=== PATIENT | female | born 1990 | race Caucasian/White ===

== ENCOUNTER 2016-07-18 21:05 | Emergency (ER) | payer OTHER ==
--- NOTE | 2016-07-18 21:14 | PDOC ---
Rapid Medical Evaluation Chief Complaint: Vaginal Sxs Time Seen by Provider: 07/18/16 21:11 Medical Evaluation: 07/18/16 21:14 I have performed a brief in-person evaluation of this patient. The patient presents with a chief complaint of: genital warts, would like treatment Pertinent physical exam findings: I have ordered the following: ucg The patient will proceed to the ED for further evaluation.
[2016-07-18 21:15] VITALS: BP 128/92; PULSE 113; TEMP 97.9; BMI 26.9
--- NOTE | 2016-07-18 22:32 | PDOC ---
History of Present Illness - General Chief Complaint: Vaginal Sxs Stated Complaint: WOMEN PERSONAL ISSUES Time Seen by Provider: 07/18/16 21:11 History Source: Patient Exam Limitations: No Limitations - History of Present Illness Initial Comments: 07/18/16 22:27 25-year-old female presents to the ED for evaluation of genital warts and requesting a medication since she [facility] yesterday was told she genital warts but did not wait for the prescription to refill the local pharmacy and came to the ER today since she was here with her boyfriend that she 's been having unprotected sex with since beginning of the relationship about 1 month ago. Patient states initially states noted the symptoms about a month and a half ago but denies other complaints including abdominal pain, vaginal discharge, dysuria, or STD history. Patient states yesterday was also tested for numerous STDs and was HIV positive But did not receive the results of gonorrhea Chlamydia or Trichomonas as of yet. Patient states was also tested for herpes. Timing/Duration: reports: constant Quality: reports: mild Abdominal Pain Onset Location: reports: other Aggravating Factors: improves with: None Alleviating Factors: improves with: None Past History - Past Medical History Allergies/Adverse Reactions: Allergies Allergy/AdvReac Type Severity Reaction Status Date / Time No Known Allergies Allergy Verified 07/18/16 21:13 Other medical history: scoliosis - Psycho/Social/Smoking Cessation Hx Suicidal Ideation: No Smoking History: Current every day smoker Number of Cigarettes Smoked Daily: 4 Information on smoking cessation initiated: Yes 'Breaking Loose' booklet given: 07/18/16 Hx Alcohol Use: No Drug/Substance Use Hx: No Patient Lives Alone: No Review of Systems - Review of Systems Able to Perform ROS?: Yes Constitutional: No: Symptoms Reported ABD/GI: No: Symptoms Reported : No: Symptoms Reported Integumentary: Yes: Other (warts to genital area) *Physical Exam - Vital Signs Last Vital Signs Temp Pulse Resp BP Pulse Ox 97.9 F 113 H 18 128/92 100 07/18/16 21:13 07/18/16 21:13 07/18/16 21:13 07/18/16 21:13 07/18/16 21:13 - Physical Exam General Appearance: Yes: Nourished, Appropriately Dressed. No: Apparent Distress Female Pelvic Exam: positive: other (noted small condylar tags to the posterior aspect of vaginal opening. no vesicles noted). negative: CMT, discharge Gastrointestinal/Abdominal: positive: Soft. negative: Tenderness Extremity: positive: Normal Capillary Refill. negative: Pedal Edema Integumentary: positive: Warm Medical Decision Making - Medical Decision Making 07/18/16 22:30 Patient here for genital warts treatment. Patient had full STD workup done yesterday in [place] and was supposed to rock picker cream for her general warts but did not wait and came back to [place] to discuss results with her current boyfriend for the past month. Patient states did notify her previous sexual partner since symptoms began with him approximately 6 weeks ago. Patient will be treated with Aldara and told to abstain from sexual intercourse until she receives her results *DC/Admit/Observation/Transfer Diagnosis at time of Disposition: Genital warts - Discharge Dispostion Disposition: HOME Condition at time of disposition: Good - Patient Instructions Printed Discharge Instructions: DI for Genital Warts Additional Instructions: Please use aldara as prescribed. Please use a condom with your partner until warts fall off and you have received the results from [facility]. Aldara is applied 3 times a week for up to 16 weeks. Please follow package insert on specific instructions
== END 2016-07-18 22:48 | disposition home or self-care (01) ==
LOC: JERFT 21:05
DX: A63.0 Anogenital (venereal) warts (principal)
CPT/HCPCS: 99281-25